=== PATIENT | female | born 1995 | race Caucasian/White ===

== ENCOUNTER 2018-03-11 13:07 | Inpatient (IN) | payer OTHER ==
[2018-03-11] VITALS (9 sets, daily range): BP systolic 116–145; BP diastolic 57–90; PULSE 54–82; RESP 14–20; TEMP 98–99.3; O2SAT 98–100
--- NOTE | 2018-03-11 13:15 | PD ---
HPI Chief Complaint: GI Complaint Time Seen by Provider: 13:15 Travel History International Travel<30 days: No Contact w/Intl Traveler<30days: No Traveled to known affect area: No History of Present Illness HPI 22-year-old female came to the emergency room with history of progressively worsening abdominal pain over past 1 week. Patient says the pain started in the left side of her abdomen and now it is in the pelvic area. She has been vomiting and unable to hold anything down. Pain is worse upon standing or walking. Patient has also done a home test which was positive. Last menstrual cycle was end of January. Patient is A3. Patient denies any vaginal discharge or fever or chills. She appeared to be in significant distress from the pain. Patient was walking with a stoop when she came in. She is otherwise a healthy person. Denies any history of STD in the past. [facility] Past Medical History Narrative Medical List of her past medical, surgical, social and family history is reviewed from the nursing note. ?: Unknown LMP: 4.5 WEEKS AGO Social History Tobacco Use: Yes Allergies-Medications (Allergen,Severity, Reaction): Coded Allergies: No Known Allergies (Verified Allergy, Unknown, 03/11/18) Comments No known drug allergies. Narrative Medication Awaiting for the nurse to do the med reconciliation. Review of Systems Except as stated in HPI: all other systems reviewed are Neg Genitourinary: Positive: Pelvic Pain Physical Exam Narrative GENERAL: Awake, alert, moderate to significant distress SKIN: Focused skin assessment warm/dry. HEAD: Atraumatic. Normocephalic. EYES: Pupils equal and round. No scleral icterus. No injection or drainage. ENT: No nasal bleeding or discharge. Mucous membranes pink and moist. NECK: Trachea midline. No JVD. CARDIOVASCULAR: Regular rate and rhythm. No murmur appreciated. RESPIRATORY: No accessory muscle use. Clear to auscultation. Breath sounds equal bilaterally. GASTROINTESTINAL: Abdomen soft, tender in the pelvic area, nondistended. Hepatic and splenic margins not palpable. : Normal external exam, speculum exam shows yellowish frothy discharge, positive CMT and left adnexal tenderness. No blood in the vaginal vault, os is closed MUSCULOSKELETAL: No obvious deformities. No clubbing. No cyanosis. No edema. NEUROLOGICAL: Awake and alert. No obvious cranial nerve deficits. Motor grossly within normal limits. Normal speech. PSYCHIATRIC: Appropriate mood and affect; insight and judgment normal. Data Data Last Documented VS Vital Signs Date Time Temp Pulse Resp B/P (MAP) Pulse Ox O2 Delivery O2 Flow Rate FiO2 03/11/18 18:00 82 14 120/74 (89) 100 Room Air 03/11/18 15:00 99.3 Orders Orders Complete Blood Count With Diff (03/11/18 13:18) Comprehensive Metabolic Panel (03/11/18 13:18) Lipase (03/11/18 13:18) Urinalysis - C+S If Indicated (03/11/18 13:18) Iv Access Insert/Monitor (03/11/18 13:18) Ecg Monitoring (03/11/18 13:18) Oximetry (03/11/18 13:18) Sodium Chlor 0.9% 1000 Ml Inj (Ns 1000 M (03/11/18 13:18) Sodium Chloride 0.9% Flush (Ns Flush) (03/11/18 13:30) Ed Urine Pregnancytest Poc (03/11/18 13:18) Beta Hcg (Quant/Titer) (03/11/18 13:33) Blood Culture (03/11/18 13:33) Ondansetron Inj (Zofran Inj) (03/11/18 13:45) Potassium Chlor 20 Meq Premix (Kcl 20 Me (03/11/18 14:15) Potassium Chloride (Kcl) (03/11/18 14:15) Sodium Chlor 0.9% 1000 Ml Inj (Ns 1000 M (03/11/18 14:15) Gc And Chlamydia Pcr (03/11/18 14:21) Wet Prep Profile (03/11/18 14:21) Us Pelvis (Ques Preg/Ectopic) (03/11/18 ) Metronidazole (Flagyl) (03/11/18 14:45) Azithromycin Powd Pack (Zithromax Powd P (03/11/18 14:45) Ceftriaxone Inj (Rocephin Inj) (03/11/18 14:45) Lidocaine 1% Inj (50 Ml) (Xylocaine 1% I (03/11/18 14:45) Lactic Acid (03/11/18 14:41) Morphine Inj (Morphine Inj) (03/11/18 15:00) Ondansetron Inj (Zofran Inj) (03/11/18 15:00) Urine Culture (03/11/18 14:30) Sodium Chlor 0.9% 1000 Ml Inj (Ns 1000 M (03/11/18 15:00) Ed Poc Ultrasound (03/11/18 ) Lidocaine 1% Inj (Xylocaine 1% Inj) (03/11/18 17:30) Metoclopramide Inj (Reglan Inj) (03/11/18 17:30) Abo/Rh Blood Type (03/11/18 17:30) Potassium Chlor 20 Meq Premix (Kcl 20 Me (03/11/18 17:30) Morphine Inj (Morphine Inj) (03/11/18 18:00) Admit Order (Ed Use Only) (03/11/18 ) Consult Obstetrics (03/11/18 ) Labs Laboratory Tests Test 03/11/18 13:40 03/11/18 14:30 03/11/18 14:40 White Blood Count 17.5 TH/MM3 Red Blood Count 5.10 MIL/MM3 Hemoglobin 16.2 GM/DL Hematocrit 48.0 % Mean Corpuscular Volume 94.0 FL Mean Corpuscular Hemoglobin 31.7 PG Mean Corpuscular Hemoglobin Concent 33.8 % Red Cell Distribution Width 11.8 % Platelet Count 244 TH/MM3 Mean Platelet Volume 10.1 FL Neutrophils (%) (Auto) 77.1 % Lymphocytes (%) (Auto) 11.9 % Monocytes (%) (Auto) 8.3 % Eosinophils (%) (Auto) 0.0 % Basophils (%) (Auto) 2.7 % Neutrophils # (Auto) 13.4 TH/MM3 Lymphocytes # (Auto) 2.1 TH/MM3 Monocytes # (Auto) 1.5 TH/MM3 Eosinophils # (Auto) 0.0 TH/MM3 Basophils # (Auto) 0.5 TH/MM3 CBC Comment DIFF FINAL Differential Comment Blood Urea Nitrogen 12 MG/DL Creatinine 0.80 MG/DL Random Glucose 102 MG/DL Total Protein 8.5 GM/DL Albumin 4.6 GM/DL Calcium Level 10.0 MG/DL Alkaline Phosphatase 67 U/L Aspartate Amino Transf (AST/SGOT) 26 U/L Alanine Aminotransferase (ALT/SGPT) 47 U/L Total Bilirubin 1.4 MG/DL Sodium Level 135 MEQ/L Potassium Level 2.7 MEQ/L Chloride Level 98 MEQ/L Carbon Dioxide Level 21.2 MEQ/L Anion Gap 16 MEQ/L Estimat Glomerular Filtration Rate 88 ML/MIN Lactic Acid Level 1.9 mmol/L Lipase 93 U/L Human Chorionic Gonadotropin, Quant 244335 MIU/ML Urine Collection Type CLEAN CATCH Urine Color YELLOW Urine Turbidity SL CLOUDY Urine pH 6.0 Urine Specific [place] GREATER/EQUAL 1.030 Urine Protein 30 mg/dL Urine Glucose (UA) NEG mg/dL Urine Ketones 80 OR GREATER mg/dL Urine Occult Blood NEG Urine Nitrite NEG Urine Bilirubin NEG Urine Urobilinogen 1.0 MG/DL Urine Leukocyte Esterase NEG Urine WBC 3-5 /hpf Urine Squamous Epithelial Cells > 8 /hpf Urine Bacteria MOD /hpf Urine Mucus FEW /lpf Microscopic Urinalysis Comment CULTURE INDICATED Clue Cells (Wet Prep) NONE SEEN Vaginal Trichomonas (Wet Prep) NONE SEEN Vaginal Yeast (Wet Prep) NONE SEEN Chlamydia trachomatis DNA (PCR) NOT DETECTED Neisseria gonorrhoeae DNA (PCR) NOT DETECTED MDM Medical Decision Making Medical Screen Exam Complete: Yes Emergency Medical Condition: Yes Medical Record Reviewed: Yes Differential Diagnosis PID, ectopic , UTI Narrative Course 2:44 PM blood test results are back and patient has leukocytosis and hypokalemia. I just finished doing a pelvic exam and patient did have CMT and adnexal tenderness. I am treating her with antibiotic. Have ordered a pelvic ultrasound which is pending. Case will be signed over to the oncoming ER physician. Procedures Procedure Narrative Emergency Department Pelvic ultrasound was performed with patient consent. The curvilinear probe was used in the transverse and sagittal views within the suprapubic region revealing single, live intrauterine . heart rate was 140 bpm. EKG Prior to Arrival: Luda Hicks MD March 11, 2018 13:15
[2018-03-11] MEDS ORDERED: SODIUM CHLOR 0.9% 1000 ML INJ 1,000 ML IV SCH (13:18)
[2018-03-11] MEDS ORDERED: SODIUM CHLORIDE 0.9% FLUSH 10 ML FLUSH IV FLUSH PRN (13:30)
[2018-03-11] MEDS ORDERED: ONDANSETRON HCL 4 MG/2 ML VIAL IV PUSH ONE ×2 (13:45→15:00)
[2018-03-11 13:54] LABS: AUTOMATED NEUTROPHIL # 13.4 TH/MM3 (1.8-7.7); BASOPHIL # 0.5 TH/MM3 (0-0.2); BASOPHIL % 2.7 % (0.0-2.0); HEMOGLOBIN 16.2 GM/DL (11.6-15.3); LYMPH % 11.9 % (9.0-44.0); LYMPHOCYTE # 2.1 TH/MM3 (1.0-4.8); MEAN CORPUSCULAR HEMOGLOBIN 31.7 PG (27.0-34.0); MEAN CORPUSCULAR HGB CONC 33.8 % (32.0-36.0); MEAN PLATELET VOLUME 10.1 FL (7.0-11.0); MONO % 8.3 % (0.0-8.0); MONOCYTE # 1.5 TH/MM3 (0-0.9); NEUT % 77.1 % (16.0-70.0); PLATELET COUNT 244 TH/MM3 (150-450); RED CELL DISTRIBUTION WIDTH 11.8 % (11.6-17.2); WHITE BLOOD COUNT 17.5 TH/MM3 (4.0-11.0)
[2018-03-11 14:02] LABS: CHLORIDE 98 MEQ/L (98-107); SODIUM (NA) 135 MEQ/L (136-145)
[2018-03-11] MEDS ORDERED: POTASSIUM CHLORIDE 20 MEQ CONTROLLED RELEASE TAB PO ONE (14:15)
[2018-03-11] MEDS ORDERED: POTASSIUM CHLOR 20 MEQ PREMIX 100 ML IV ONE ×2 (14:15→17:30)
[2018-03-11] MEDS ORDERED: SODIUM CHLOR 0.9% 1000 ML INJ 1,000 ML IV ONE ×2 (14:15→15:00)
[2018-03-11 14:22] LABS: ALBUMIN 4.6 GM/DL (3.4-5.0); ALKALINE PHOSPHATASE 67 U/L (45-117); ALT (GPT) 47 U/L (10-53); AST (GOT) 26 U/L (15-37); BICARBONATE 21.2 MEQ/L (21.0-32.0); BLOOD UREA NITROGEN 12 MG/DL (7-18); GLOMERULAR FILTRATION RATE 88 ML/MIN (>89); GLUCOSE,RANDOM 102 MG/DL (74-106); TOTAL BILIRUBIN ADULT 1.4 MG/DL (0.2-1.0); TOTAL PROTEIN 8.5 GM/DL (6.4-8.2)
[2018-03-11 14:41] LABS: BLOOD, URINE NEG (NEG); GLUCOSE,URINE NEG (NEG); KETONE, URINE 80 OR GREATER mg/dL (NEG); NITRITE,URINE NEG (NEG); URINE COLOR YELLOW (YELLW/STRAW); URINE LEUKOCYTE ESTERASE NEG (NEG)
[2018-03-11] MEDS ORDERED: cefTRIAXone 250 MG VIAL IM ONE (14:45)
[2018-03-11] MEDS ORDERED: LIDOCAINE HCL 1% 50 ML VIAL IM ONE (14:45)
[2018-03-11] MEDS ORDERED: metroNIDAZOLE 500 MG TAB PO ONE (14:45)
[2018-03-11] MEDS ORDERED: AZITHROMYCIN PWD FOR SUSP 1 GM PACKET PO ONE (14:45)
[2018-03-11 14:46] LABS: BILIRUBIN, URINE NEG (NEG)
[2018-03-11 14:49] LABS: BACTERIA, URINE MOD /hpf; MUCUS URINE FEW /lpf (OCC); SQUAMOUS EPITHELIAL CELL URINE > 8 /hpf (0-5)
[2018-03-11] MEDS ORDERED: MORPHINE SULFATE 4 MG/ML INJ IV PUSH ONE ×2 (15:00→18:00)
[2018-03-11] MEDS ORDERED: LIDOCAINE HCL 1% 20 ML VIAL OTHER ONE (17:30)
[2018-03-11] MEDS ORDERED: METOCLOPRAMIDE HCL 10 MG/2 ML VIAL IV PUSH ONE (17:30)
--- NOTE | 2018-03-11 17:32 | RADRPT ---
EXAM DATE: 03/11/2018 3:50 PM EDT AGE/SEX: 22 years / Female INDICATIONS: Left lower abdomen and pelvic pain. CLINICAL DATA: This is the patient's initial encounter. Patient reports that signs and symptoms have been present for 2 days and indicates a pain score of 10/10. MEDICAL/SURGICAL HISTORY: . None. COMPARISON: No prior [place] exams available for comparison. MEASUREMENTS: Uterus:__10.5 x 8.6 x 8.7 Endometrial Stripe:__13 mm Right Ovary:__ 3.8 x 1.0 x 1.4 cm Left Ovary:__ 2.9 x 2.8 x 2.2 cm FINDINGS: Uterus: There is an early single intrauterine present. There is a pole present with a crown-rump length corresponding to a 7 week 2 day menstrual age. heart rate of 183 bpm was ob tained. There is a hypoechoic collection adjacent to the gestational sac measuring up to 4.3 x 1.0 x 0.9 cm. Right Ovary: Unremarkable in appearance. Left Ovary: Unremarkable in appearance. Other: No free fluid. CONCLUSION: 1. Single early intrauterine corresponding to a 7 week 2 day menstrual age. 2. Hypoechoic collection adjacent to the gestational sac most characteristic of a subchorionic hemor rhage. Electronically signed by: Yonatan Butt MD 03/11/2018 5:31 PM EDT
[2018-03-11] MEDS ORDERED: NALOXONE HCL 0.4 MG/ML AMP IV PUSH PRN (18:15)
[2018-03-11] MEDS ORDERED: ACETAMINOPHEN 325 MG TAB PO PRN (18:15)
[2018-03-11] MEDS: ONDANSETRON HCL 4 MG/2 ML VIAL IVP PRN (21:54)
[2018-03-11] MEDS: SODIUM CHLORIDE 0.9% FLUSH 10 ML FLUSH IV FLUSH SCH (21:55)
--- NOTE | 2018-03-11 23:33 | HHI.HP ---
HPI Service [facility] Primary Care Physician No Primary Care Physician Admission Diagnosis Sepsis, Poss PID, 7 weeks preg Diagnoses: (1) UTI (urinary tract infection) (2) Subchorionic hemorrhage in first trimester Chief Complaint: Abdominal pain x 1 week with n/v Travel History International Travel<30 Days: No Contact w/Intl Traveler <30 Da: No Traveled to Known Affected Are: No History of Present Illness Ms. Red is a pleasant 22 y/o female with a history of 3 miscarriages who presented to the ER in [place] for evaluation of abdominal pain, nausea, and vomiting. She was found to have UTI and sepsis with IUP dated 11/19 on pelvic US. She was transferred to [facility] for obstetrics consultation under the hospitalist service. The patient is seen in her hospital room. She reports abdominal pain with nausea and vomiting x 1 week - symptoms are severe. She reports some relief with IV morphine in [place]. She is with three spontaneous miscarriages. She denies any vaginal bleeding, fevers, chills, history of STDs. Review of Systems Except as stated in HPI: all other systems reviewed are Neg Past Family Social History Past Medical History Miscarriages x 3 . Past Surgical History Denies . Reported Medications None . Allergies: Coded Allergies: No Known Allergies (Verified Allergy, Unknown, 03/11/18) Family History Denies family history of miscarriages . Social History Tobacco: smokes 1/2 PPD up until about two weeks ago Alcohol: none now, occasional social drinking prior to 2 weeks ago Illicit drugs: denies Moved to [place] from [place]; has a son and fiancee' . Physical Exam Vital Signs Vital Signs Date Time Temp Pulse Resp B/P (MAP) Pulse Ox O2 Delivery O2 Flow Rate FiO2 03/11/18 21:38 99.1 72 18 128/87 (101) 100 03/11/18 20:41 82 18 98 03/11/18 20:12 82 16 124/88 (100) 99 Room Air 03/11/18 18:00 82 14 120/74 (89) 100 Room Air 03/11/18 16:20 73 14 145/90 (108) 100 Room Air 03/11/18 15:00 99.3 66 16 116/69 (85) 99 Room Air 03/11/18 15:00 14 03/11/18 14:00 100 Room Air 03/11/18 13:10 98.0 70 20 127/79 (95) 98 Physical Exam GENERAL: This is a well-nourished, well-developed patient, she appears SKIN: No rashes, ecchymoses or lesions. Cool and dry. HEAD: Atraumatic. Normocephalic. EYES: No scleral icterus. No injection or drainage. ENT: Nose without bleeding, purulent drainage. Uvula midline. Airway patent. NECK: Trachea midline. No JVD. CARDIOVASCULAR: Regular rate and rhythm without murmurs, gallops, or rubs. RESPIRATORY: Clear to auscultation. Breath sounds equal bilaterally. No wheezes , rales, or rhonchi. GASTROINTESTINAL: Abdomen soft, tender, nondistended. No guarding. MUSCULOSKELETAL: Extremities without clubbing, cyanosis, or edema. No calf tenderness. NEUROLOGICAL: Awake and alert. Motor and sensory grossly within normal limits. Normal speech. . Laboratory Laboratory Tests Test 03/11/18 13:40 03/11/18 14:30 03/11/18 14:40 White Blood Count 17.5 Red Blood Count 5.10 Hemoglobin 16.2 Hematocrit 48.0 Mean Corpuscular Volume 94.0 Mean Corpuscular Hemoglobin 31.7 Mean Corpuscular Hemoglobin Concent 33.8 Red Cell Distribution Width 11.8 Platelet Count 244 Mean Platelet Volume 10.1 Neutrophils (%) (Auto) 77.1 Lymphocytes (%) (Auto) 11.9 Monocytes (%) (Auto) 8.3 Eosinophils (%) (Auto) 0.0 Basophils (%) (Auto) 2.7 Neutrophils # (Auto) 13.4 Lymphocytes # (Auto) 2.1 Monocytes # (Auto) 1.5 Eosinophils # (Auto) 0.0 Basophils # (Auto) 0.5 CBC Comment DIFF FINAL Differential Comment Blood Urea Nitrogen 12 Creatinine 0.80 Random Glucose 102 Total Protein 8.5 Albumin 4.6 Calcium Level 10.0 Alkaline Phosphatase 67 Aspartate Amino Transf (AST/SGOT) 26 Alanine Aminotransferase (ALT/SGPT) 47 Total Bilirubin 1.4 Sodium Level 135 Potassium Level 2.7 Chloride Level 98 Carbon Dioxide Level 21.2 Anion Gap 16 Estimat Glomerular Filtration Rate 88 Lactic Acid Level 1.9 Lipase 93 Human Chorionic Gonadotropin, Quant [id number] Urine Collection Type CLEAN CATCH Urine Color YELLOW Urine Turbidity SL CLOUDY Urine pH 6.0 Urine Specific [place] GREATER/EQUAL 1.030 Urine Protein 30 Urine Glucose (UA) NEG Urine Ketones 80 OR GREATER Urine Occult Blood NEG Urine Nitrite NEG Urine Bilirubin NEG Urine Urobilinogen 1.0 Urine Leukocyte Esterase NEG Urine WBC 3-5 Urine Squamous Epithelial Cells > 8 Urine Bacteria MOD Urine Mucus FEW Microscopic Urinalysis Comment CULTURE INDICATED Clue Cells (Wet Prep) NONE SEEN Vaginal Trichomonas (Wet Prep) NONE SEEN Vaginal Yeast (Wet Prep) NONE SEEN Chlamydia trachomatis DNA (PCR) NOT DETECTED Neisseria gonorrhoeae DNA (PCR) NOT DETECTED Date/Time Source Procedure Growth Status 03/11/18 13:55 Blood Peripheral Aerobic Blood Culture Pending Received 03/11/18 13:55 Blood Peripheral Anaerobic Blood Culture Pending Received 03/11/18 14:30 Urine Clean Catch Urine Culture Pending Received Result Diagram: 03/11/18 1340 03/11/18 1340 Imaging Last Impressions Pelvis Ultrasound 03/11/18 0000 Signed Impressions: CONCLUSION: 1. Single early intrauterine corresponding to a 7 week 2 day menstru al age. 2. Hypoechoic collection adjacent to the gestational sac most characteristic o f a subchorionic hemorrhage. . Caprini VTE Risk Assessment Caprini VTE Risk Assessment: No/Low Risk (score <= 1) Caprini Risk Assessment Model Point Value = 1 Point Value = 2 Point Value = 3 Point Value = 5 Age 41-60 Minor surgery BMI > 25 kg/m2 Swollen legs Varicose veins or History of unexplained or recurrent spontaneous Oral contraceptives or hormone replacement Sepsis (< 1 month) Serious lung disease, including pneumonia (< 1 month) Abnormal pulmonary function Acute myocardial infarction Congestive heart failure (< 1 month) History of inflammatory bowel disease Medical patient at bed rest Age 61-74 Arthroscopic surgery Major open surgery (> 45 min) Laparoscopic surgery (> 45 min) Malignancy Confined to bed (> 72 hours) Immobilizing plaster cast Central venous access Age >= 75 History of VTE Family history of VTE Factor V Leiden Prothrombin [id number] Lupus anticoagulant Anticardiolipin antibodies Elevated serum homocysteine Heparin-induced thrombocytopenia Other congenital or acquired thrombophilia Stroke (< 1 month) Elective arthroplasty Hip, pelvis, or leg fracture Acute spinal cord injury (< 1 month) Prophylaxis Regimen Total Risk Factor Score Risk Level Prophylaxis Regimen 0-1 Low Early ambulation 2 Moderate Order ONE of the following: *Sequential Compression Device (SCD) *Heparin 5000 units SQ BID 3-4 Higher Order ONE of the following medications: *Heparin 5000 units SQ TID *Enoxaparin/Lovenox 40 mg SQ daily (WT < 150 kg, CrCl > 30 mL/min) *Enoxaparin/Lovenox 30 mg SQ daily (WT < 150 kg, CrCl > 10-29 mL/min) *Enoxaparin/Lovenox 30 mg SQ BID (WT < 150 kg, CrCl > 30 mL/min) AND/OR *Sequential Compression Device (SCD) 5 or more Highest Order ONE of the following medications: *Heparin 5000 units SQ TID (Preferred with Epidurals) *Enoxaparin/Lovenox 40 mg SQ daily (WT < 150 kg, CrCl > 30 mL/min) *Enoxaparin/Lovenox 30 mg SQ daily (WT < 150 kg, CrCl > 10-29 mL/min) *Enoxaparin/Lovenox 30 mg SQ BID (WT < 150 kg, CrCl > 30 mL/min) AND *Sequential Compression Device (SCD) Assessment and Plan Problem List: (1) UTI (urinary tract infection) ICD Code: N39.0 - Urinary tract infection, site not specified (2) Subchorionic hemorrhage in first trimester ICD Code: O41.8X10 - Other specified disorders of amniotic fluid and membranes , first trimester, not applicable or unspecified; O46.8X1 - Other antepartum hemorrhage, first trimester Assessment and Plan Ms. Red is a pleasant 22 y/o female with a history of 3 miscarriages who presented to the ER in [place] for evaluation of abdominal pain, nausea, and vomiting. She was found to have UTI and sepsis with IUP dated 11/19 on pelvic US. She was transferred to [facility] for obstetrics consultation under the hospitalist service. UTI - UA c/w UTI; STD testing is negative - Cefoxitin 2 gm IV q6h - IVF hydration with NS at 125 cc/hr - urine culture pending - await results and adjust treatment as indicated Subchorionic hemorrhage - Obstetric consulted - assistance appreciated. IUP - vitamin ordered Nausea and vomiting - Zofran 4 mg IV q6h PRN n/v . Discussed Condition With patient, patient's meredith' (with patient's permission), RN, and Dr. Syed Physician Certification 2 Midnight Certification Type: Admission for Inpatient Services Order for Inpatient Services The services are ordered in accordance with Medicare regulations or non- Medicare payer requirements, as applicable. In the case of services not specified as inpatient-only, they are appropriately provided as inpatient services in accordance with the 2-midnight benchmark. Estimated LOS (days): 3 days is the estimated time the patient will need to remain in the hospital, assuming treatment plan goals are met and no additional complications. Post-Hospital Plan: Home Jessica Pedraza March 11, 2018 23:33
[2018-03-11] MEDS: ACETAMINOPHEN 325 MG TAB PO PRN (23:36)
[2018-03-12] VITALS (8 sets, daily range): BP systolic 110–138; BP diastolic 58–90; PULSE 48–64; RESP 16–20; TEMP 97.7–98.5; O2SAT 98–100
[2018-03-12] MEDS: SODIUM CHLOR 0.9% 1000 ML INJ 1,000 ML IV SCH ×3 (00:15→16:15)
[2018-03-12 05:28] LABS: AUTOMATED NEUTROPHIL # 10.6 TH/MM3 (1.8-7.7); BASOPHIL % 0.2 % (0.0-2.0); EOSINOPHIL # 0.1 TH/MM3 (0-0.4); EOSINOPHIL % 0.4 % (0.0-4.0); HEMATOCRIT 33.1 % (35.0-46.0); HEMOGLOBIN 11.9 GM/DL (11.6-15.3); LYMPH % 16.5 % (9.0-44.0); LYMPHOCYTE # 2.4 TH/MM3 (1.0-4.8); MEAN CORPUSCULAR HEMOGLOBIN 33.1 PG (27.0-34.0); MEAN PLATELET VOLUME 10.1 FL (7.0-11.0); MONO % 9.2 % (0.0-8.0); MONOCYTE # 1.3 TH/MM3 (0-0.9); NEUT % 73.7 % (16.0-70.0); PLATELET COUNT 166 TH/MM3 (150-450); RED BLOOD COUNT 3.59 MIL/MM3 (4.00-5.30); RED CELL DISTRIBUTION WIDTH 12.4 % (11.6-17.2); WHITE BLOOD COUNT 14.4 TH/MM3 (4.0-11.0)
[2018-03-12 05:43] LABS: AST (GOT) 18 U/L (15-37); BLOOD UREA NITROGEN 5 MG/DL (7-18); CALCIUM 7.6 MG/DL (8.5-10.1); CHLORIDE 105 MEQ/L (98-107); CREATININE 0.51 MG/DL (0.50-1.00); GLOMERULAR FILTRATION RATE 148 ML/MIN (>89); GLUCOSE,RANDOM 92 MG/DL (74-106); SODIUM (NA) 138 MEQ/L (136-145)
[2018-03-12 05:46] LABS: ALKALINE PHOSPHATASE 49 U/L (45-117); ALT (GPT) 31 U/L (10-53); TOTAL BILIRUBIN ADULT 1.3 MG/DL (0.2-1.0); TOTAL PROTEIN 5.6 GM/DL (6.4-8.2)
[2018-03-12] MEDS: SODIUM CHLORIDE 0.9% FLUSH 10 ML FLUSH IV FLUSH SCH ×2 (08:27→21:00)
[2018-03-12] MEDS: ACETAMINOPHEN 325 MG TAB PO PRN ×2 (08:37→14:48)
[2018-03-12] MEDS: MULTIVIT/MIN/PREN/FOL AC/IRON PRENATAL TAB PO SCH (08:37)
[2018-03-12] MEDS: ceFOXitin INJ 2 GM in SODIUM CHLORIDE 0.9% INJ 100 ML IV SCH ×3 (08:37→21:00)
[2018-03-12] MEDS: ONDANSETRON HCL 4 MG/2 ML VIAL IVP PRN ×3 (08:38→22:40)
[2018-03-12] MEDS ORDERED: PRENATAL VITAMIN CHEWABLE TAB CHEW SCH (09:00)
--- NOTE | 2018-03-12 09:42 | PD.CONS ---
HPI Chief Complaint Left sided abdominal pain, N/V Date Seen: March 12, 2018 Time Seen: 09:00 Travel History International Travel<30 Days: No Contact w/Intl Traveler<30Days: No Known Affected Area: No History of Present Illness HPI Patient is a 22-year-old female at 7/3 weeks gestation who presented to the ED with complaint of 1 week history of left-sided abdominal pain and nausea and vomiting. Patient describes abdominal pain as stabbing. Currently patient reports that abdominal pain has not improved, rates pain 10/10. She denies any loss of fluid, vaginal bleeding, dysuria fever or chills. Denies deep pelvic pain. 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 She is currently in a monogamous relationship and denies any history of STDs in the past. Weeks Gestation: 7 Para: 1 : 5 Miscarriage: 3 History Past Medical History Medical History: Denies Significant Hx Obstetric History Obstetric History Patient found out she was a wk ago Gestation age 7/3 based on pelvic ultrasound. x1, no complications Miscarriage x3 at 6-7 wk gestation Patient reports she is still in the process of finding an OB doctor for care Past Surgical History Surgical History: No Previous Surgery Family History Family History: Negative Social History Alcohol Use: No (former spoker 1/2 PPD, quit 1 wk ago) Tobacco Use: No (occasional, has not had alcohol since 1 wk ago) Substance Abuse: No Allergies-Medications (Allergen,Severity, Reaction): Coded Allergies: No Known Allergies (Verified Allergy, Unknown, 03/11/18) Review of Systems Except as stated in HPI: all other systems reviewed are Neg (Per HPI) Physical Exam Vital Signs Date Time Temp Pulse Resp B/P (MAP) Pulse Ox O2 Delivery O2 Flow Rate FiO2 03/12/18 04:30 97.8 51 16 121/82 (95) 98 03/12/18 03:55 64 03/11/18 23:41 59 03/11/18 23:30 98.4 54 16 124/57 (79) 99 03/11/18 21:38 99.1 72 18 128/87 (101) 100 03/11/18 20:41 82 18 98 03/11/18 20:12 82 16 124/88 (100) 99 Room Air 03/11/18 18:00 82 14 120/74 (89) 100 Room Air 03/11/18 16:20 73 14 145/90 (108) 100 Room Air 03/11/18 15:00 99.3 66 16 116/69 (85) 99 Room Air 03/11/18 15:00 14 03/11/18 14:00 100 Room Air 03/11/18 13:10 98.0 70 20 127/79 (95) 98 Narrative GENERAL: Well-nourished, well-developed patient, in mild distress laying in bed. SKIN: Warm and dry. HEAD: Normocephalic and atraumatic. EYES: No scleral icterus. No injection or drainage. ENT: No nasal drainage noted. Mucous membranes pink. Airway patent. NECK: Supple, trachea midline. No JVD. CARDIOVASCULAR: Regular rate and rhythm without murmurs, gallops, or rubs. RESPIRATORY: Breath sounds equal bilaterally. No accessory muscle use. BREASTS: Bilateral exam showed no masses , no retractions, no nipple discharge. ABDOMEN/GI: Abdomen soft, tender to palpation on Left Upper and lower quadrant, bowel sounds present, no rebound, no guarding. mild CVA tenderness BL, more pronounce on Left side. EXTREMITIES: No cyanosis or edema. +2 PD pulses BL. non-tender calves. NEUROLOGICAL: Awake and alert. Motor and sensory grossly within normal limits. Five out of 5 muscle strength in all muscle groups. Normal speech. Data Data Vital Signs Reviewed: Yes Orders Orders Complete Blood Count With Diff (03/11/18 13:18) Comprehensive Metabolic Panel (03/11/18 13:18) Lipase (03/11/18 13:18) Urinalysis - C+S If Indicated (03/11/18 13:18) Iv Access Insert/Monitor (03/11/18 13:18) Ecg Monitoring (03/11/18 13:18) Oximetry (03/11/18 13:18) Sodium Chlor 0.9% 1000 Ml Inj (Ns 1000 M (03/11/18 13:18) Sodium Chloride 0.9% Flush (Ns Flush) (03/11/18 13:30) Ed Urine Pregnancytest Poc (03/11/18 13:18) Beta Hcg (Quant/Titer) (03/11/18 13:33) Blood Culture (03/11/18 13:33) Ondansetron Inj (Zofran Inj) (03/11/18 13:45) Potassium Chlor 20 Meq Premix (Kcl 20 Me (03/11/18 14:15) Potassium Chloride (Kcl) (03/11/18 14:15) Sodium Chlor 0.9% 1000 Ml Inj (Ns 1000 M (03/11/18 14:15) Gc And Chlamydia Pcr (03/11/18 14:21) Wet Prep Profile (03/11/18 14:21) Us Pelvis (Ques Preg/Ectopic) (03/11/18 ) Metronidazole (Flagyl) (03/11/18 14:45) Azithromycin Powd Pack (Zithromax Powd P (03/11/18 14:45) Ceftriaxone Inj (Rocephin Inj) (03/11/18 14:45) Lidocaine 1% Inj (50 Ml) (Xylocaine 1% I (03/11/18 14:45) Lactic Acid (03/11/18 14:41) Morphine Inj (Morphine Inj) (03/11/18 15:00) Ondansetron Inj (Zofran Inj) (03/11/18 15:00) Urine Culture (03/11/18 14:30) Sodium Chlor 0.9% 1000 Ml Inj (Ns 1000 M (03/11/18 15:00) Ed Poc Ultrasound (03/11/18 ) Lidocaine 1% Inj (Xylocaine 1% Inj) (03/11/18 17:30) Metoclopramide Inj (Reglan Inj) (03/11/18 17:30) Abo/Rh Blood Type (03/11/18 17:30) Potassium Chlor 20 Meq Premix (Kcl 20 Me (03/11/18 17:30) Morphine Inj (Morphine Inj) (03/11/18 18:00) Admit Order (Ed Use Only) (03/11/18 ) Consult Obstetrics (03/11/18 ) Admit To Inpatient (03/11/18 ) Code Status (03/11/18 18:09) Vital Signs (Adult) Q4H (03/11/18 18:09) Activity Oob With Assistance (03/11/18 18:09) Diet Regular Basic (03/11/18 Dinner) Sodium Chloride 0.9% Flush (Ns Flush) (03/11/18 18:15) Sodium Chloride 0.9% Flush (Ns Flush) (03/11/18 21:00) Acetaminophen (Tylenol) (03/11/18 18:15) Ondansetron Inj (Zofran Inj) (03/11/18 18:15) Comprehensive Metabolic Panel (03/12/18 06:00) Complete Blood Count With Diff (03/12/18 06:00) Scd Bilateral/Knee High KIRILL.BID (03/11/18 18:09) Acetaminophen (Tylenol) (03/11/18 18:15) Naloxone Inj (Narcan Inj) (03/11/18 18:15) Inpatient Certification (03/11/18 ) Fdulpqo-Ikl-It-Iron Prena Chew ( (03/12/18 09:00) (Hub Use Only)Inp Phy Cons/Ref (03/11/18 ) Cefoxitin Inj (Mefoxin Inj) (03/12/18 09:00) Sodium Chlor 0.9% 1000 Ml Inj (Ns 1000 M (03/12/18 00:15) Rrcubyja-Kug-Pyulg-Iron Prenat (Stuartna (03/12/18 09:00) Physician Name Changes (03/12/18 ) Labs Laboratory Tests Test 03/11/18 13:40 03/11/18 14:30 03/11/18 14:40 03/12/18 04:00 White Blood Count 17.5 14.4 Red Blood Count 5.10 3.59 Hemoglobin 16.2 11.9 Hematocrit 48.0 33.1 Mean Corpuscular Volume 94.0 92.0 Mean Corpuscular Hemoglobin 31.7 33.1 Mean Corpuscular Hemoglobin Concent 33.8 36.0 Red Cell Distribution Width 11.8 12.4 Platelet Count 244 166 Mean Platelet Volume 10.1 10.1 Neutrophils (%) (Auto) 77.1 73.7 Lymphocytes (%) (Auto) 11.9 16.5 Monocytes (%) (Auto) 8.3 9.2 Eosinophils (%) (Auto) 0.0 0.4 Basophils (%) (Auto) 2.7 0.2 Neutrophils # (Auto) 13.4 10.6 Lymphocytes # (Auto) 2.1 2.4 Monocytes # (Auto) 1.5 1.3 Eosinophils # (Auto) 0.0 0.1 Basophils # (Auto) 0.5 0.0 CBC Comment DIFF FINAL AUTO DIFF Differential Comment AUTO DIFF CONFIRMED Blood Urea Nitrogen 12 5 Creatinine 0.80 0.51 Random Glucose 102 92 Total Protein 8.5 5.6 Albumin 4.6 3.0 Calcium Level 10.0 7.6 Alkaline Phosphatase 67 49 Aspartate Amino Transf (AST/SGOT) 26 18 Alanine Aminotransferase (ALT/SGPT) 47 31 Total Bilirubin 1.4 1.3 Sodium Level 135 138 Potassium Level 2.7 3.2 Chloride Level 98 105 Carbon Dioxide Level 21.2 20.0 Anion Gap 16 13 Estimat Glomerular Filtration Rate 88 148 Lactic Acid Level 1.9 Lipase 93 Human Chorionic Gonadotropin, Quant [id number] Urine Collection Type CLEAN CATCH Urine Color YELLOW Urine Turbidity SL CLOUDY Urine pH 6.0 Urine Specific [place] GREATER/EQUAL 1.030 Urine Protein 30 Urine Glucose (UA) NEG Urine Ketones 80 OR GREATER Urine Occult Blood NEG Urine Nitrite NEG Urine Bilirubin NEG Urine Urobilinogen 1.0 Urine Leukocyte Esterase NEG Urine WBC 3-5 Urine Squamous Epithelial Cells > 8 Urine Bacteria MOD Urine Mucus FEW Microscopic Urinalysis Comment CULTURE INDICATED Clue Cells (Wet Prep) NONE SEEN Vaginal Trichomonas (Wet Prep) NONE SEEN Vaginal Yeast (Wet Prep) NONE SEEN Chlamydia trachomatis DNA (PCR) NOT DETECTED Neisseria gonorrhoeae DNA (PCR) NOT DETECTED Platelet Estimate NORMAL Platelet Morphology Comment NORMAL Date/Time Source Procedure Growth Status 03/11/18 13:55 Blood Peripheral Aerobic Blood Culture Pending Received 03/11/18 13:55 Blood Peripheral Anaerobic Blood Culture Pending Received 03/11/18 14:30 Urine Clean Catch Urine Culture Pending Received [facility] Medical Record Reviewed: Yes Plan Patient is a 22-year-old female at 7/3 weeks gestation who presented to the ED with complaint of 1 week history of left-sided abdominal pain and nausea and vomiting. 1. IUP at 7/2 weeks gestation -patient advised to establish care - vitamins 2.Abdominal of unknown source PID not a diagnosis since patient has viable iup found on u/s Septic dx not considered. Patient is afebrile, VS WNL, PE and history do not support signs of septic . Left sided abdominal pain not due to or DEVELOPMENT REPRESENTATIVE source. Consider other sources of abdominal pain, such are renal. Consider obtaining renal u/s Pain control: IV or PO opiate medication is ok to give patient during the first trimester. [facility] OB hospitalist Dr. Miramontes Admitting diagnosis: Sepsis, Poss PID, 7 weeks preg Murali Carolina MD, R1 March 12, 2018 09:42
--- NOTE | 2018-03-12 12:27 | HHI.PR ---
Subjective Remarks Just took a shower, still feels weak, still feels sick, nauseated and vomiting. No improvement from yesterday. Afebrile. Objective Vitals Vital Signs Date Time Temp Pulse Resp B/P (MAP) Pulse Ox O2 Delivery O2 Flow Rate FiO2 03/12/18 08:10 98.1 51 20 136/90 (105) 100 03/12/18 04:30 97.8 51 16 121/82 (95) 98 03/12/18 03:55 64 03/11/18 23:41 59 03/11/18 23:30 98.4 54 16 124/57 (79) 99 03/11/18 21:38 99.1 72 18 128/87 (101) 100 03/11/18 20:41 82 18 98 03/11/18 20:12 82 16 124/88 (100) 99 Room Air 03/11/18 18:00 82 14 120/74 (89) 100 Room Air 03/11/18 16:20 73 14 145/90 (108) 100 Room Air 03/11/18 15:00 99.3 66 16 116/69 (85) 99 Room Air 03/11/18 15:00 14 03/11/18 14:00 100 Room Air 03/11/18 13:10 98.0 70 20 127/79 (95) 98 I/O 03/11/18 03/11/18 03/11/18 03/12/18 03/12/18 03/12/18 07:00 15:00 23:00 07:00 15:00 23:00 Intake Total 3100 ml 480 ml Output Total 300 ml Balance 3100 ml 180 ml Intake Oral 480 ml IV Total 3100 ml Output Urine Total 300 ml # Bowel Movements 0 Result Diagram: 03/12/18 0400 03/12/18 0400 Imaging Last Impressions Pelvis Ultrasound 03/11/18 0000 Signed Impressions: CONCLUSION: 1. Single early intrauterine corresponding to a 7 week 2 day menstru al age. 2. Hypoechoic collection adjacent to the gestational sac most characteristic o f a subchorionic hemorrhage. Objective Remarks Not in distress Regular rate and rhythm Clear breath sounds Mild abdominal tenderness, no CVA tenderness No edema Alert awake and oriented 3, no focal deficits. A/P Problem List: (1) UTI (urinary tract infection) ICD Code: N39.0 - Urinary tract infection, site not specified (2) Subchorionic hemorrhage in first trimester ICD Code: O41.8X10 - Other specified disorders of amniotic fluid and membranes , first trimester, not applicable or unspecified; O46.8X1 - Other antepartum hemorrhage, first trimester Assessment and Plan Ms. Red is a pleasant 22 y/o female with a history of 3 miscarriages who presented to the ER in [place] for evaluation of abdominal pain, nausea, and vomiting. She was found to have UTI and sepsis with IUP dated 11/19 on pelvic US. UTI - UA c/w UTI; STD testing is negative, urine culture pending, continue IVF, continue cefoxitin. Will defer pain control to obstetrics. Currently on Tylenol. Leukocytosis improving. Check kidney ultrasound, rule out stones. Subchorionic hemorrhage - Obstetric consulted - assistance appreciated. Pain control per obstetrics. IUP - vitamin ordered Nausea and vomiting - Zofran 4 mg IV q6h PRN n/v Hypokalemia-replace, recheck BMP tomorrow. Blrkrj-hhsrciutetvm-ijbmfzh tomorrow. DVT prophylaxis: Low risk Discharge Planning Discharge once better. Daniel Jose MD March 12, 2018 12:27
[2018-03-12] MEDS ORDERED: POTASSIUM CHLORIDE 20 MEQ PWD PACKET PO ONE (12:30)
--- NOTE | 2018-03-12 20:02 | RADRPT ---
EXAM DATE: 03/12/2018 7:56 PM EDT AGE/SEX: 22 years / Female INDICATIONS: Renal stone. CLINICAL DATA: This is the patient's initial encounter. Patient reports that signs and symptoms have been present for 1 day and indicates a pain score of 4/10. MEDICAL/SURGICAL HISTORY: . Miscarriages x3. None. COMPARISON: [facility], US PELVIS ([facility] PREG/ECTOPIC), 03/11/2018. . No external comparison. MEASUREMENTS: Right Kidney:__9.3 x 4.4 x 3.9 cm Left Kidney:__11.0 x 3.8 x 5.7 cm FINDINGS: Right Kidney: No hydronephrosis, stone, or mass. Very mild distention of the intrarenal collecting sy stem is present. Left Kidney: No hydronephrosis, stone, or mass. Bladder: Within normal limits given the degree of distension. The previously documented gestational s ac is again seen within the endometrial cavity. CONCLUSION: No renal stone is identified. There is mild distention of the right renal collecting system without f rank hydronephrosis. Electronically signed by: Krishan Braxton MD 03/12/2018 8:01 PM EDT
[2018-03-12] MEDS: MORPHINE SULFATE 4 MG/ML INJ IV PRN (23:49)
[2018-03-12] MEDS: SODIUM CHLORIDE 0.9% FLUSH 10 ML FLUSH IV FLUSH PRN (23:49)
[2018-03-13] MEDS: SODIUM CHLOR 0.9% 1000 ML INJ 1,000 ML IV SCH ×3 (00:15→18:22)
[2018-03-13] MEDS: ceFOXitin INJ 2 GM in SODIUM CHLORIDE 0.9% INJ 100 ML IV SCH ×4 (03:00→20:34)
[2018-03-13] MEDS: SODIUM CHLORIDE 0.9% FLUSH 10 ML FLUSH IV FLUSH PRN (03:20)
[2018-03-13] MEDS: MORPHINE SULFATE 4 MG/ML INJ IV PRN ×5 (03:20→21:32)
[2018-03-13 03:40] VITALS: BP 135/85; PULSE 61; RESP 16; TEMP 98.1; O2SAT 99
[2018-03-13 08:00] VITALS: BP 100/59; PULSE 61; RESP 20; TEMP 98.2; O2SAT 98
[2018-03-13 08:45] LABS: BICARBONATE 17.4 MEQ/L (21.0-32.0); CALCIUM 8.1 MG/DL (8.5-10.1); CREATININE 0.6 MG/DL (0.50-1.00)
[2018-03-13] MEDS: SODIUM CHLORIDE 0.9% FLUSH 10 ML FLUSH IV FLUSH SCH ×2 (09:00→20:36)
[2018-03-13] MEDS ORDERED: POTASSIUM CHLORIDE 20 MEQ CONTROLLED RELEASE TAB PO ONE (09:30)
[2018-03-13] MEDS: MULTIVIT/MIN/PREN/FOL AC/IRON PRENATAL TAB PO SCH (09:45)
[2018-03-13] MEDS: ONDANSETRON HCL 4 MG/2 ML VIAL IVP PRN ×2 (09:46→18:22)
[2018-03-13 12:00] VITALS: BP 152/95; PULSE 62; RESP 20; TEMP 97.4; O2SAT 100
[2018-03-13 16:00] VITALS: BP 120/79; PULSE 65; RESP 20; TEMP 98.3; O2SAT 99
--- NOTE | 2018-03-13 18:32 | HHI.PR ---
Subjective Remarks Patient reports that she had vaginal bleeding in the shower today, associated with her presentation of nausea vomiting and left-sided abdominal pain this is suspicious for a 7 week threatened miscarriage. Objective Vitals Vital Signs Date Time Temp Pulse Resp B/P (MAP) Pulse Ox O2 Delivery O2 Flow Rate FiO2 03/13/18 16:00 98.3 65 20 120/79 (93) 99 03/13/18 16:00 Room Air 03/13/18 12:00 Room Air 03/13/18 12:00 97.4 62 20 152/95 (114) 100 03/13/18 08:00 98.2 61 20 100/59 (73) 98 03/13/18 08:00 Room Air 03/13/18 03:40 98.1 61 16 135/85 (102) 99 03/12/18 23:27 98.1 53 16 128/58 (81) 98 03/12/18 20:58 98.5 59 16 137/84 (101) 100 03/12/18 19:00 100 Nasal Cannula 2.00 I/O 03/12/18 03/12/18 03/12/18 03/13/18 03/13/18 03/13/18 06:59 14:59 22:59 06:59 14:59 22:59 Intake Total 480 ml 520 ml 960 ml Output Total 300 ml 600 ml Balance 180 ml -80 ml 960 ml Intake Oral 480 ml 520 ml 960 ml Output Urine Total 300 ml 600 ml # Voids 2 # Bowel Movements 0 1 0 Result Diagram: 03/12/18 0400 03/13/18 1535 Objective Remarks GENERAL: Well-nourished, well-developed patient. Tearful SKIN: Warm and dry. HEAD: Normocephalic. EYES: No scleral icterus. No injection or drainage. NECK: Supple, trachea midline. No JVD or lymphadenopathy. CARDIOVASCULAR: Regular rate and rhythm without murmurs, gallops, or rubs. RESPIRATORY: Breath sounds equal bilaterally. No accessory muscle use. GASTROINTESTINAL: Moderate abdominal pain and left pelvis, nondistended. EXTREMITIES: No cyanosis, or edema. NEUROLOGICAL: Awake, alert, and oriented x 3. Non-focal. A/P Problem List: (1) UTI (urinary tract infection) ICD Code: N39.0 - Urinary tract infection, site not specified (2) Subchorionic hemorrhage in first trimester ICD Code: O41.8X10 - Other specified disorders of amniotic fluid and membranes , first trimester, not applicable or unspecified; O46.8X1 - Other antepartum hemorrhage, first trimester Assessment and Plan Ms. Red is a pleasant 22 y/o female with a history of 3 miscarriages who presented with abdominal pain, nausea and vomiting UTI Urinalysis positive for infection, negative for STD continue cefoxitin Abdominal pain with vaginal bleeding Threatened miscarriage at 7 weeks History of 3 previous miscarriages Appreciate obstetrics consult Continue vitamin until miscarriage confirmed Nausea and vomiting Zofran as needed DVT prophylaxis Avoid chemical prophylaxis due to vaginal bleeding Silvino Gallegos MD Mar 13, 2018 18:32
[2018-03-13 21:00] VITALS: BP 147/82; PULSE 61; RESP 16; TEMP 98.2; O2SAT 100
[2018-03-13 23:42] VITALS: BP 114/76; PULSE 53; RESP 16; TEMP 97.3; O2SAT 100
[2018-03-14] MEDS: SODIUM CHLOR 0.9% 1000 ML INJ 1,000 ML IV SCH ×3 (00:15→17:53)
[2018-03-14] MEDS: MORPHINE SULFATE 4 MG/ML INJ IV PRN ×6 (02:32→21:23)
[2018-03-14] MEDS: ceFOXitin INJ 2 GM in SODIUM CHLORIDE 0.9% INJ 100 ML IV SCH ×4 (02:34→19:59)
[2018-03-14] MEDS: ONDANSETRON HCL 4 MG/2 ML VIAL IVP PRN ×2 (02:53→11:25)
[2018-03-14 04:15] VITALS: BP 112/60; PULSE 60; RESP 16; TEMP 98.4; O2SAT 97
[2018-03-14 08:00] VITALS: BP 129/74; PULSE 54; RESP 18; TEMP 97.9; O2SAT 99
[2018-03-14] MEDS: SODIUM CHLORIDE 0.9% FLUSH 10 ML FLUSH IV FLUSH SCH ×2 (08:07→20:02)
[2018-03-14] MEDS: MULTIVIT/MIN/PREN/FOL AC/IRON PRENATAL TAB PO SCH (08:07)
[2018-03-14 08:18] LABS: AUTOMATED NEUTROPHIL # 6.2 TH/MM3 (1.8-7.7); BASOPHIL % 0.5 % (0.0-2.0); EOSINOPHIL # 0.1 TH/MM3 (0-0.4); EOSINOPHIL % 0.6 % (0.0-4.0); HEMATOCRIT 31.4 % (35.0-46.0); HEMOGLOBIN 11.3 GM/DL (11.6-15.3); LYMPH % 23.9 % (9.0-44.0); LYMPHOCYTE # 2.2 TH/MM3 (1.0-4.8); MEAN CELL VOLUME 92.4 FL (80.0-100.0); MEAN CORPUSCULAR HEMOGLOBIN 33.2 PG (27.0-34.0); MEAN CORPUSCULAR HGB CONC 35.9 % (32.0-36.0); MEAN PLATELET VOLUME 10.4 FL (7.0-11.0); MONOCYTE # 0.7 TH/MM3 (0-0.9); PLATELET COUNT 146 TH/MM3 (150-450); RED CELL DISTRIBUTION WIDTH 12.5 % (11.6-17.2); WHITE BLOOD COUNT 9.3 TH/MM3 (4.0-11.0)
[2018-03-14 08:38] LABS: CREATININE 0.38 MG/DL (0.50-1.00)
[2018-03-14 08:39] LABS: BICARBONATE 16.4 MEQ/L (21.0-32.0); CALCIUM 7.7 MG/DL (8.5-10.1)
[2018-03-14 12:00] VITALS: BP 117/70; PULSE 60; RESP 18; TEMP 98.1; O2SAT 100
[2018-03-14 16:00] VITALS: BP 108/58; PULSE 55; RESP 18; TEMP 98; O2SAT 98
--- NOTE | 2018-03-14 16:25 | HHI.PR ---
Subjective Remarks Patient has slight improvement in her nausea and vomiting, less abdominal pain today. She denies any recurrence of her vaginal bleeding. She states that the vaginal bleeding yesterday was scant while she was taking a shower. Objective Vitals Vital Signs Date Time Temp Pulse Resp B/P (MAP) Pulse Ox O2 Delivery O2 Flow Rate FiO2 03/14/18 12:00 98.1 60 18 117/70 (86) 100 03/14/18 08:00 97.9 54 18 129/74 (92) 99 03/14/18 08:00 99 Room Air 03/14/18 04:17 18 03/14/18 04:15 98.4 60 16 112/60 (77) 97 03/13/18 23:42 97.3 53 16 114/76 (89) 100 03/13/18 21:00 98.2 61 16 147/82 (103) 100 03/13/18 20:30 Room Air I/O 03/13/18 03/13/18 03/13/18 03/14/18 03/14/18 03/14/18 07:00 15:00 23:00 07:00 15:00 23:00 Intake Total 960 ml 580 ml 2060 ml Output Total 750 ml 700 ml Balance 960 ml 580 ml 1310 ml -700 ml Intake Oral 960 ml 480 ml 960 ml IV Total 100 ml 1100 ml Output Urine Total 750 ml 600 ml Emesis 100 ml # Voids 2 3 # Bowel Movements 0 0 Result Diagram: 03/14/18 0724 03/14/18 0724 Objective Remarks GENERAL: Well-nourished, well-developed patient. SKIN: Warm and dry. HEAD: Normocephalic. EYES: No scleral icterus. No injection or drainage. NECK: Supple, trachea midline. No JVD or lymphadenopathy. CARDIOVASCULAR: Regular rate and rhythm without murmurs, gallops, or rubs. RESPIRATORY: Breath sounds equal bilaterally. No accessory muscle use. GASTROINTESTINAL: Moderate abdominal pain and left pelvis, nondistended. EXTREMITIES: No cyanosis, or edema. NEUROLOGICAL: Awake, alert, and oriented x 3. Non-focal. A/P Problem List: (1) UTI (urinary tract infection) ICD Code: N39.0 - Urinary tract infection, site not specified (2) Subchorionic hemorrhage in first trimester ICD Code: O41.8X10 - Other specified disorders of amniotic fluid and membranes , first trimester, not applicable or unspecified; O46.8X1 - Other antepartum hemorrhage, first trimester Assessment and Plan Ms. Red is a pleasant 22 y/o female with a history of 3 miscarriages who presented with abdominal pain, nausea and vomiting UTI Urinalysis positive for infection, negative for STD continue cefoxitin Abdominal pain with vaginal bleeding History of 3 previous miscarriages Current is at 7 weeks, scant bleeding on 03/13, no recurrence today Appreciate obstetrics consult Continue vitamin Transvaginal ultrasound ordered for tomorrow to determine if is still present Nausea and vomiting Zofran as needed DVT prophylaxis Avoid chemical prophylaxis due to vaginal bleeding Discharge planning If ultrasound shows viable and patient can be controlled from a pain, nausea standpoint discharge should be considered Silvino Gallegos MD Mar 14, 2018 16:25
[2018-03-14 20:00] VITALS: BP 127/60; PULSE 59; RESP 18; TEMP 98; O2SAT 97
[2018-03-15] VITALS: BP 150/67; PULSE 58; RESP 17; TEMP 98.3; O2SAT 100
[2018-03-15] MEDS: SODIUM CHLOR 0.9% 1000 ML INJ 1,000 ML IV SCH (00:15)
[2018-03-15] MEDS: MORPHINE SULFATE 4 MG/ML INJ IV PRN ×4 (00:25→12:01)
[2018-03-15] MEDS: ceFOXitin INJ 2 GM in SODIUM CHLORIDE 0.9% INJ 100 ML IV SCH ×2 (03:34→08:45)
[2018-03-15 08:00] VITALS: BP 98/53; PULSE 60; PULSE 68; RESP 18; TEMP 98.3; O2SAT 99
[2018-03-15] MEDS: MULTIVIT/MIN/PREN/FOL AC/IRON PRENATAL TAB PO SCH (08:45)
[2018-03-15] MEDS: SODIUM CHLORIDE 0.9% FLUSH 10 ML FLUSH IV FLUSH SCH (08:45)
[2018-03-15 11:53] LABS: AUTOMATED NEUTROPHIL # 5.2 TH/MM3 (1.8-7.7); BASOPHIL % 0.6 % (0.0-2.0); EOSINOPHIL # 0.1 TH/MM3 (0-0.4); EOSINOPHIL % 1.3 % (0.0-4.0); HEMATOCRIT 38.5 % (35.0-46.0); HEMOGLOBIN 13.7 GM/DL (11.6-15.3); LYMPH % 25.2 % (9.0-44.0); MEAN CELL VOLUME 92.7 FL (80.0-100.0); MEAN CORPUSCULAR HGB CONC 35.6 % (32.0-36.0); MEAN PLATELET VOLUME 10.1 FL (7.0-11.0); MONO % 7.1 % (0.0-8.0); MONOCYTE # 0.6 TH/MM3 (0-0.9); NEUT % 65.8 % (16.0-70.0); PLATELET COUNT 176 TH/MM3 (150-450); RED BLOOD COUNT 4.15 MIL/MM3 (4.00-5.30); RED CELL DISTRIBUTION WIDTH 12.6 % (11.6-17.2); WHITE BLOOD COUNT 7.9 TH/MM3 (4.0-11.0)
[2018-03-15 12:00] VITALS: BP 111/57; PULSE 73; RESP 18; TEMP 98.1; O2SAT 100
--- NOTE | 2018-03-15 12:11 | RADRPT ---
EXAM DATE: 03/15/2018 11:53 AM EDT AGE/SEX: 22 years / Female INDICATIONS: Vaginal bleeding. CLINICAL DATA: This is the patient's subsequent encounter. Patient reports that signs and symptoms h ave been present for 2 weeks and indicates a pain score of 8/10. MEDICAL/SURGICAL HISTORY: . . Miscarriages x3. Tobacco use. None. COMPARISON: No prior [place] exams available for comparison. No external comparison. TECHNIQUE: Real-time ultrasound of the pelvis was performed using an endovaginal transducer. [facility] (03/11/2018) MEASUREMENTS (cm x cm x cm): Uterus:__Measures 11.5 x 5.4 x 7.3 Endometrial Stripe:__>20 mm Right Ovary:__Measures 3.6 x 1.4 x 2.0 Left Ovary:__Measures 3.3 x 2.7 x 2.2 FINDINGS: Uterus: Gestational sac, yolk sac and pole seen within the uterine cavity. [place]-rump rump manuel gth is 1.7 cm corresponding to a gestational age of 8 weeks 1 day. heart tones are demonstrated . Right Ovary: No dominant cyst or mass. Left Ovary: No mass or dominant cyst. Other: Trace free fluid in the pelvic cul-de-sac CONCLUSION: Within normal limits. Single, viable intrauterine as above. Electronically signed by: Krishan Gaston MD 03/15/2018 12:10 PM EDT
[2018-03-15 12:17] LABS: ALBUMIN 3.7 GM/DL (3.4-5.0); ALT (GPT) 29 U/L (10-53); AST (GOT) 15 U/L (15-37); BICARBONATE 18.5 MEQ/L (21.0-32.0); BLOOD UREA NITROGEN 3 MG/DL (7-18); CALCIUM 8.8 MG/DL (8.5-10.1); CHLORIDE 104 MEQ/L (98-107); CREATININE 0.58 MG/DL (0.50-1.00); GLOMERULAR FILTRATION RATE 128 ML/MIN (>89); GLUCOSE,RANDOM 76 MG/DL (74-106); SODIUM (NA) 136 MEQ/L (136-145)
[2018-03-15 12:30] VITALS: PULSE 87
[2018-03-15 12:55] LABS: ALKALINE PHOSPHATASE 52 U/L (45-117); FREE T4 1.36 NG/DL (0.76-1.46); TOTAL BILIRUBIN ADULT 0.6 MG/DL (0.2-1.0); TOTAL PROTEIN 6.8 GM/DL (6.4-8.2)
--- NOTE | 2018-03-15 15:07 | HHI.PR ---
Subjective Remarks Ms. Red is a pleasant 22 y/o female with a history of 3 miscarriages who presented to the ER in [place] for evaluation of abdominal pain, nausea, and vomiting. She was found to have UTI and sepsis with IUP dated 11/19 on pelvic US. She was transferred to [facility] for obstetrics consultation under the hospitalist service. The patient is seen in her hospital room. She reports abdominal pain with nausea and vomiting x 1 week - symptoms are severe. She reports some relief with IV morphine in [place]. She is with three spontaneous miscarriages. She denies any vaginal bleeding, fevers, chills, history of STDs. 5-31 Just took a shower, still feels weak, still feels sick, nauseated and vomiting. No improvement from yesterday. Afebrile. 6-1 Patient reports that she had vaginal bleeding in the shower today, associated with her presentation of nausea vomiting and left-sided abdominal pain this is suspicious for a 7 week threatened miscarriage. 6-2 Patient has slight improvement in her nausea and vomiting, less abdominal pain today. She denies any recurrence of her vaginal bleeding. She states that the vaginal bleeding yesterday was scant while she was taking a shower. 6-3 LESS ABDOMINAL PAIN CAN BE DCED TO HOME TODAY SWITCH TO PO MEDS FOR PAIN AND PO MEDS ANTIBIOTICS FOLLOW UP WITH PCP VITAMINS Objective Vitals Vital Signs Date Time Temp Pulse Resp B/P (MAP) Pulse Ox O2 Delivery O2 Flow Rate FiO2 03/15/18 12:30 03/15/18 12:00 98.1 73 18 111/57 (75) 100 03/15/18 08:00 03/15/18 08:00 98.3 60 18 98/53 (68) 99 03/15/18 07:00 Room Air 03/15/18 00:00 98.3 58 17 150/67 (94) 100 03/14/18 20:00 98.0 59 18 127/60 (82) 97 03/14/18 16:00 98 Room Air 03/14/18 16:00 98.0 55 18 108/58 (75) 98 I/O 03/14/18 03/14/18 03/14/18 03/15/18 03/15/18 03/15/18 07:00 15:00 23:00 07:00 15:00 23:00 Intake Total 2060 ml 660 ml 544 ml Output Total 750 ml 700 ml Balance 1310 ml -700 ml 660 ml 544 ml Intake Oral 960 ml 560 ml 444 ml IV Total 1100 ml 100 ml 100 ml Output Urine Total 750 ml 600 ml Emesis 100 ml # Voids 6 3 # Bowel Movements 0 1 0 Result Diagram: 03/15/18 1136 03/15/18 1136 Other Results Laboratory Tests Test 03/13/18 05:39 03/13/18 15:35 03/14/18 07:24 03/15/18 11:36 Blood Urea Nitrogen 4 MG/DL 4 MG/DL 3 MG/DL Creatinine 0.60 MG/DL 0.38 MG/DL 0.58 MG/DL Random Glucose 71 MG/DL 64 MG/DL 76 MG/DL Calcium Level 8.1 MG/DL 7.7 MG/DL 8.8 MG/DL Sodium Level 136 MEQ/L 138 MEQ/L 136 MEQ/L Potassium Level 2.9 MEQ/L 3.4 MEQ/L 3.1 MEQ/L 3.1 MEQ/L Chloride Level 106 MEQ/L 107 MEQ/L 104 MEQ/L Carbon Dioxide Level 17.4 MEQ/L 16.4 MEQ/L 18.5 MEQ/L Anion Gap 13 MEQ/L 15 MEQ/L 14 MEQ/L Estimat Glomerular Filtration Rate 123 ML/MIN 208 ML/MIN 128 ML/MIN White Blood Count 9.3 TH/MM3 7.9 TH/MM3 Red Blood Count 3.40 MIL/MM3 4.15 MIL/MM3 Hemoglobin 11.3 GM/DL 13.7 GM/DL Hematocrit 31.4 % 38.5 % Mean Corpuscular Volume 92.4 FL 92.7 FL Mean Corpuscular Hemoglobin 33.2 PG 33.0 PG Mean Corpuscular Hemoglobin Concent 35.9 % 35.6 % Red Cell Distribution Width 12.5 % 12.6 % Platelet Count 146 TH/MM3 176 TH/MM3 Mean Platelet Volume 10.4 FL 10.1 FL Neutrophils (%) (Auto) 67.0 % 65.8 % Lymphocytes (%) (Auto) 23.9 % 25.2 % Monocytes (%) (Auto) 8.0 % 7.1 % Eosinophils (%) (Auto) 0.6 % 1.3 % Basophils (%) (Auto) 0.5 % 0.6 % Neutrophils # (Auto) 6.2 TH/MM3 5.2 TH/MM3 Lymphocytes # (Auto) 2.2 TH/MM3 2.0 TH/MM3 Monocytes # (Auto) 0.7 TH/MM3 0.6 TH/MM3 Eosinophils # (Auto) 0.1 TH/MM3 0.1 TH/MM3 Basophils # (Auto) 0.0 TH/MM3 0.0 TH/MM3 CBC Comment DIFF FINAL DIFF FINAL Differential Comment Total Protein 6.8 GM/DL Albumin 3.7 GM/DL Magnesium Level 2.0 MG/DL Alkaline Phosphatase 52 U/L Aspartate Amino Transf (AST/SGOT) 15 U/L Alanine Aminotransferase (ALT/SGPT) 29 U/L Total Bilirubin 0.6 MG/DL Phosphorus Level 2.4 MG/DL Free Thyroxine 1.36 NG/DL Thyroid Stimulating Hormone 3rd Gen 0.698 uIU/ML Imaging Last Impressions Pelvis Ultrasound 03/15/18 0000 Signed Impressions: CONCLUSION: Within normal limits. Single, viable intrauterine as abo ve. Renal Ultrasound 03/12/18 0000 Signed Impressions: CONCLUSION: No renal stone is identified. There is mild distention of the right renal colle cting system without jules hydronephrosis. Objective Remarks GENERAL: Awake alert and oriented 3 talkative and cooperative does not appear to be in any major distress SKIN: Warm and dry. Multiple tattoos HEAD: Atraumatic. Normocephalic. EYES: Pupils equal and round. No scleral icterus. No injection or drainage. ENT: No nasal bleeding or discharge. Mucous membranes pink and moist. NECK: Trachea midline. No JVD. CARDIOVASCULAR: Regular rate and rhythm. S1-S2 no S3 or S4 RESPIRATORY: No accessory muscle use. Clear to auscultation. Breath sounds equal bilaterally. GASTROINTESTINAL: Abdomen soft, non-tender, nondistended. Hepatic and splenic margins not palpable. MUSCULOSKELETAL: Extremities without clubbing, cyanosis, or edema. No obvious deformities. NEUROLOGICAL: Awake and alert. No obvious cranial nerve deficits. Motor grossly within normal limits. Five out of 5 muscle strength in the arms and legs. Normal speech. PSYCHIATRIC: Appropriate mood and affect; insight and judgment normal. Medications and IVs Current Medications Sodium Chloride 1,000 ml @ 1,000 mls/hr Q1H IV Last administered on 03/11/18at 13:52; Start 03/11/18 at 13:18; Stop 03/11/18 at 14:17; Status DC Sodium Chloride (NS Flush) 2 ml UNSCH PRN IV FLUSH FLUSH AFTER USING IV ACCESS ; Start 03/11/18 at 13:30; Stop 03/11/18 at 18:37; Status DC Ondansetron HCl (Zofran Inj) 4 mg ONCE ONCE IV PUSH Last administered on at 13:52; Start 03/11/18 at 13:45; Stop 03/11/18 at 13:46; Status DC Potassium Chloride 100 ml @ 50 mls/hr ONCE ONCE IV Last administered on at 14:18; Start 03/11/18 at 14:15; Stop 03/11/18 at 16:14; Status DC Potassium Chloride (KCl) 40 meq ONCE ONCE PO Last administered on 03/11/18at 14 :17; Start 03/11/18 at 14:15; Stop 03/11/18 at 14:16; Status DC Sodium Chloride 1,000 ml @ 999 mls/hr BOLUS ONCE IV Last administered on 03/11at 14:54; Start 03/11/18 at 14:15; Stop 03/11/18 at 15:15; Status DC Metronidazole (Flagyl) 500 mg ONCE ONCE PO Last administered on 03/11/18at 17: 34; Start 03/11/18 at 14:45; Stop 03/11/18 at 14:46; Status DC Azithromycin (Zithromax Powd Pack) 1 gm ONCE ONCE PO Last administered on 03/11at 17:34; Start 03/11/18 at 14:45; Stop 03/11/18 at 14:46; Status DC Ceftriaxone Sodium (Rocephin Inj) 250 mg ONCE ONCE IM Last administered on at 17:35; Start 03/11/18 at 14:45; Stop 03/11/18 at 14:46; Status DC Lidocaine HCl (Xylocaine 1% Inj (50 ml)) 0.9 ml ONCE ONCE IM ; Start 03/11/18 at 14:45; Stop 03/11/18 at 14:46; Status DC Morphine Sulfate (Morphine Inj) 4 mg ONCE ONCE IV PUSH Last administered on at 14:53; Start 03/11/18 at 15:00; Stop 03/11/18 at 15:01; Status DC Ondansetron HCl (Zofran Inj) 4 mg ONCE ONCE IV PUSH Last administered on at 14:53; Start 03/11/18 at 15:00; Stop 03/11/18 at 15:01; Status DC Sodium Chloride 1,000 ml @ 999 mls/hr BOLUS ONCE IV Last administered on 03/11at 17:34; Start 03/11/18 at 15:00; Stop 03/11/18 at 16:00; Status DC Lidocaine HCl (Xylocaine 1% Inj) 0.9 ml ONCE ONCE OTHER Last administered on at 17:35; Start 03/11/18 at 17:30; Stop 03/11/18 at 17:31; Status DC Metoclopramide HCl (Reglan Inj) 10 mg ONCE ONCE IV PUSH Last administered on 17:35; Start 03/11/18 at 17:30; Stop 03/11/18 at 17:31; Status DC Potassium Chloride 100 ml @ 50 mls/hr ONCE ONCE IV ; Start 03/11/18 at 17:30; Stop 03/11/18 at 17:48; Status DC Morphine Sulfate (Morphine Inj) 4 mg ONCE ONCE IV PUSH Last administered on at 17:50; Start 03/11/18 at 18:00; Stop 03/11/18 at 18:01; Status DC Sodium Chloride (NS Flush) 2 ml UNSCH PRN IV FLUSH FLUSH AFTER USING IV ACCESS Last administered on 03/13/18 03:20; Start 03/11/18 at 18:15 Sodium Chloride (NS Flush) 2 ml BID IV FLUSH Last administered on 03/14/18 08: 07; Start 03/11/18 at 21:00 Acetaminophen (Tylenol) 650 mg Q4H PRN PO TEMP > 100.4; Start 03/11/18 at 18:15 Ondansetron HCl (Zofran Inj) 4 mg Q6H PRN IVP NAUSEA OR VOMITING Last administered on 03/14/18 11:25; Start 03/11/18 at 18:15 Acetaminophen (Tylenol) 650 mg Q6H PRN PO PAIN SCALE 1 TO 2 Last administered on 03/12/18at 14:48; Start 03/11/18 at 18:15 Naloxone HCl (Narcan Inj) 0.4 mg UNSCH PRN IV PUSH SEE LABEL COMMENTS; Start at 18:15 Cefoxitin Sodium 2 gm/Sodium Chloride 100 ml @ 200 mls/hr Q6H IV Last administered on 03/15/18at 08:45; Start 03/12/18 at 09:00 Sodium Chloride 1,000 ml @ 125 mls/hr Q8H IV Last administered on 03/14/18at 17: 53; Start 03/12/18 at 00:15 Prenat Multivit/ [place]/Iron/Folic Ac (Stuartnatal Plus 3 ) 1 tab DAILY PO Last administered on 03/15/18at 08:45; Start 03/12/18 at 09:00 Potassium Chloride (KCl Powder) 40 meq ONCE ONCE PO Last administered on at 14:49; Start 03/12/18 at 12:30; Stop 03/12/18 at 12:34; Status DC Morphine Sulfate (Morphine Inj) 2 mg Q3H PRN IV PAIN>5 Last administered on 03/15at 12:01; Start 03/12/18 at 23:15 Potassium Chloride (KCl) 20 meq ONCE ONCE PO Last administered on 03/13/18at 09: 45; Start 03/13/18 at 09:30; Stop 03/13/18 at 09:36; Status DC A/P Problem List: (1) UTI (urinary tract infection) ICD Code: N39.0 - Urinary tract infection, site not specified (2) Subchorionic hemorrhage in first trimester ICD Code: O41.8X10 - Other specified disorders of amniotic fluid and membranes , first trimester, not applicable or unspecified; O46.8X1 - Other antepartum hemorrhage, first trimester Assessment and Plan Ms. Red is a pleasant 22 y/o female with a history of 3 miscarriages who presented with abdominal pain, nausea and vomiting UTI Urinalysis positive for infection, negative for STD continue cefoxitin Abdominal pain with vaginal bleeding History of 3 previous miscarriages Current is at 7 weeks, scant bleeding on 03/13, no recurrence today Appreciate obstetrics consult Continue vitamin Transvaginal ultrasound ordered for tomorrow to determine if is still present Nausea and vomiting Zofran as needed DVT prophylaxis Avoid chemical prophylaxis due to vaginal bleeding Discharge planning If ultrasound shows viable and patient can be controlled from a pain, nausea standpoint discharge should be considered Discharge Planning DC TO HOME Orion Kraft DO Mar 15, 2018 15:07
[2018-03-15] MEDS ORDERED: CEFU1TAB18 PO (15:11)
[2018-03-15] MEDS ORDERED: ZOFR8TAB4 SL (15:11)
[2018-03-15] MEDS ORDERED: PREN29TA PO (15:11)
[2018-03-15] MEDS ORDERED: NORC5TAB PO (15:11)
--- NOTE | 2018-03-15 15:14 | HHI.DS ---
Discharge Summary Admission Date March 11, 2018 at 18:09 Discharge Date: Mar 15, 2018 Admitting Diagnosis Sepsis, Poss PID, 7 weeks preg (1) UTI (urinary tract infection) ICD Code: N39.0 - Urinary tract infection, site not specified Diagnosis: Principal (2) Subchorionic hemorrhage in first trimester ICD Code: O41.8X10 - Other specified disorders of amniotic fluid and membranes , first trimester, not applicable or unspecified; O46.8X1 - Other antepartum hemorrhage, first trimester Diagnosis: Principal (3) Sepsis ICD Code: A41.9 - Sepsis, unspecified organism Diagnosis: Principal Procedures NONE Brief History - From Admission Ms. Red is a pleasant 22 y/o female with a history of 3 miscarriages who presented to the ER in [place] for evaluation of abdominal pain, nausea, and vomiting. She was found to have UTI and sepsis with IUP dated 11/19 on pelvic US. She was transferred to [facility] for obstetrics consultation under the hospitalist service. The patient is seen in her hospital room. She reports abdominal pain with nausea and vomiting x 1 week - symptoms are severe. She reports some relief with IV morphine in [place]. She is with three spontaneous miscarriages. She denies any vaginal bleeding, fevers, chills, history of STDs. CBC/BMP: 03/15/18 1136 03/15/18 1136 Significant Findings Laboratory Tests Test 03/13/18 05:39 03/13/18 15:35 03/14/18 07:24 03/15/18 11:36 Blood Urea Nitrogen 4 MG/DL (7-18) 4 MG/DL (7-18) 3 MG/DL (7-18) Random Glucose 71 MG/DL (74-106) 64 MG/DL (74-106) Calcium Level 8.1 MG/DL (8.5-10.1) 7.7 MG/DL (8.5-10.1) Potassium Level 2.9 MEQ/L (3.5-5.1) 3.4 MEQ/L (3.5-5.1) 3.1 MEQ/L (3.5-5.1) 3.1 MEQ/L (3.5-5.1) Carbon Dioxide Level 17.4 MEQ/L (21.0-32.0) 16.4 MEQ/L (21.0-32.0) 18.5 MEQ/L (21.0-32.0) Red Blood Count 3.40 MIL/MM3 (4.00-5.30) Hemoglobin 11.3 GM/DL (11.6-15.3) Hematocrit 31.4 % (35.0-46.0) Platelet Count 146 TH/MM3 (150-450) Creatinine 0.38 MG/DL (0.50-1.00) Phosphorus Level 2.4 MG/DL (2.5-4.9) Imaging Last Impressions Pelvis Ultrasound 03/15/18 0000 Signed Impressions: CONCLUSION: Within normal limits. Single, viable intrauterine as abo ve. Renal Ultrasound 03/12/18 0000 Signed Impressions: CONCLUSION: No renal stone is identified. There is mild distention of the right renal colle cting system without jules hydronephrosis. PE at Discharge GENERAL: Awake alert and oriented 3 talkative and cooperative does not appear to be in any major distress SKIN: Warm and dry. Multiple tattoos HEAD: Atraumatic. Normocephalic. EYES: Pupils equal and round. No scleral icterus. No injection or drainage. ENT: No nasal bleeding or discharge. Mucous membranes pink and moist. NECK: Trachea midline. No JVD. CARDIOVASCULAR: Regular rate and rhythm. S1-S2 no S3 or S4 RESPIRATORY: No accessory muscle use. Clear to auscultation. Breath sounds equal bilaterally. GASTROINTESTINAL: Abdomen soft, non-tender, nondistended. Hepatic and splenic margins not palpable. MUSCULOSKELETAL: Extremities without clubbing, cyanosis, or edema. No obvious deformities. NEUROLOGICAL: Awake and alert. No obvious cranial nerve deficits. Motor grossly within normal limits. Five out of 5 muscle strength in the arms and legs. Normal speech. PSYCHIATRIC: Appropriate mood and affect; insight and judgment normal. Hospital Course Ms. Red is a pleasant 22 y/o female with a history of 3 miscarriages who presented to the ER in [place] for evaluation of abdominal pain, nausea, and vomiting. She was found to have UTI and sepsis with IUP dated 11/19 on pelvic US. She was transferred to [facility] for obstetrics consultation under the hospitalist service. The patient is seen in her hospital room. She reports abdominal pain with nausea and vomiting x 1 week - symptoms are severe. She reports some relief with IV morphine in [place]. She is with three spontaneous miscarriages. She denies any vaginal bleeding, fevers, chills, history of STDs. 5-31 Just took a shower, still feels weak, still feels sick, nauseated and vomiting. No improvement from yesterday. Afebrile. 6-1 Patient reports that she had vaginal bleeding in the shower today, associated with her presentation of nausea vomiting and left-sided abdominal pain this is suspicious for a 7 week threatened miscarriage. 6-2 Patient has slight improvement in her nausea and vomiting, less abdominal pain today. She denies any recurrence of her vaginal bleeding. She states that the vaginal bleeding yesterday was scant while she was taking a shower. 6-3 LESS ABDOMINAL PAIN CAN BE DCED TO HOME TODAY SWITCH TO PO MEDS FOR PAIN AND PO MEDS ANTIBIOTICS FOLLOW UP WITH PCP VITAMINS Pt Condition on Discharge: Good Discharge Disposition: Discharge Home Discharge Time: <= 30 minutes Discharge Instructions DIET: Follow Instructions for: As Tolerated, No Restrictions Speech Therapy-Diet Recommends: Regular Activities you can perform: Regular-No Restrictions, Pelvic Rest Follow up Referrals: [facility] - 2-3 Days PCP Follow-up - 2-3 Days New Medications: Cefuroxime (Ceftin) 250 Mg Tab 250 MG PO BID for Infection, #28 TAB Hydrocodone-Acetaminophen ([place]) 5 Mg-325 Mg Tab 1 TAB PO Q4H PRN for PAIN, #30 TAB 0 Refills Ondansetron Odt (Zofran Odt) 8 Mg Tab 8 MG SL Q8H PRN for NAUSEA OR VOMITING, #60 TAB 0 Refills Vit-Iron Carbonyl ( Plus Iron 29-1 mg) 29 Mg Iron-1 Mg Tab 1 TAB PO DAILY for Nutritional Supplement, #180 TAB Orion Kraft DO Mar 15, 2018 15:14
[2018-03-15] MEDS ORDERED: POTASSIUM BICARBONATE 25 MEQ EFFERVESCENT TAB PO ONE (15:15)
== END 2018-03-15 16:00 | disposition home or self-care (01) | DRG 781 ==
LOC: PHED 13:07 → PHEDA 18:09 → N04A 21:14
PROVIDERS: ADMIT Hospitalist; ATTEND Hospitalist
DX: O46.8X1 Other antepartum hemorrhage, first trimester (principal); O98.811 Other maternal infectious and parasitic diseases complicating pregnancy, first trimester; O23.41 Unspecified infection of urinary tract in pregnancy, first trimester; O41.8X10 Other specified disorders of amniotic fluid and membranes, first trimester, not applicable or unspecified; Z3A.01 Less than 8 weeks gestation of pregnancy
CPT/HCPCS: 76700; 76775; 76801; 76817; 80048; 80053; 81001; 83036; 83605; 83690; 83735; 84100; 84132; 84439; 84443; 84702; 84703; 85025; 86900; 86901; 87040; 87077; 87086; 87186; 87210; 87491; 87591; 96361; 96365; 96366; 96372; 96375; J0694; J0696; J2270; J2405; J2765; J3480; J7030